=== PATIENT | male | born 1995 | race Asian ===

== ENCOUNTER 2016-08-14 15:42 | Emergency (ER) | payer OTHER ==
[~2016-08-14] VITALS: Ht 182.9 cm; Wt 109.3 kg
[2016-08-14 15:56] VITALS: TEMP 37; Ht 182.9 cm; Wt 109.3 kg
[2016-08-14] MEDS ORDERED: CLR10 PO (17:33)
[2016-08-14] MEDS ORDERED: OXYM-48 NAE (17:33)
[2016-08-14] MEDS ORDERED: BNC/20125 PO (17:33)
[2016-08-14] MEDS ORDERED: MILK1CAP9 PO (17:33)
[2016-08-14] MEDS ORDERED: LEVO75TA PO (17:33)
[2016-08-14] MEDS ORDERED: BIOT10CA PO (17:33)
[2016-08-14] MEDS ORDERED: SODIUM CHLORIDE 0.9% 1000ML 1,000 ML IV STA (17:37)
[2016-08-14 18:01] LABS: HEMATOCRIT 40.3 % (42-52); MEAN CELL VOLUME 82.8 fL (80-100); MEAN CORPUSCULAR HEMOGLOBIN 28.3 pg (25-34); MEAN CORPUSCULAR HGB CONC 34.2 g/dl (32-36); MEAN PLATELET VOLUME 9.3 fL (7.4-10.4); PLATELET COUNT 215 K/uL (130-400); RED BLOOD COUNT 4.87 M/uL (4.7-6.1); WHITE BLOOD COUNT 11.79 K/uL (4.8-10.8)
[2016-08-14 18:17] LABS: BUN/CREATININE RATIO 11.1 (10-20); CALCIUM 9.2 mg/dl (8.5-10.1); CREATININE 0.88 mg/dl (0.60-1.40); POTASSIUM 3.8 mmol/L (3.5-5.1)
[2016-08-14 18:20] LABS: ALB/GLOB RATIO 0.9 (0.9-2)
--- NOTE | 2016-08-14 18:51 | DIAGNOSTIC IMAGING REPORT ---
CHEST 2 VIEWS ROUTINE CLINICAL HISTORY: cough dyspnea COMPARISON STUDY: No previous studies for comparison. FINDINGS: The bones soft tissues and hemidiaphragms are normal. The cardiomediastinal silhouette is normal. The lungs are clear. The pulmonary vasculature is normal. IMPRESSION: Negative chest. Electronically signed by: Cale Hartman M.D. 08/14/2016 6:50 PM Dictated Date/Time: 08/14/2016 6:50 PM
[2016-08-14] MEDS ORDERED: SULFAMETHOXAZOLE/TRIMETHOPRIM DS 800/160MG TAB PO STA (19:04)
[2016-08-14 19:22] VITALS: BP 127/76; PULSE 86; O2SAT 98
[2016-08-14] MEDS ORDERED: SULF800T23 PO (19:23)
--- NOTE | 2016-08-14 19:25 | EMERGENCY ROOM VISIT NOTE ---
ED Visit Note First contact with patient: 17:19 CHIEF COMPLAINT: Headache, facial pain, sinus and nasal congestion 2 weeks HPI: Patient is a 21-year-old male who presents emergency department for evaluation of upper respiratory symptoms that have been ongoing for almost 2 weeks. He states that prior to leaving for spring at the beginning of the month, he was sick with upper respiratory symptoms for about a day and went to [facility]. He was told it was viral. He subsequently flew to [place] for spring. He felt okay but had some minor congestion while away. He states that after flying back from [place] and arriving here in town last Monday he symptoms markedly worsened. He describes a frontal headache and pressure in his sinuses and behind his eyes. He notes swollen glands in his neck, postnasal drip, and a scant, nonproductive cough. He was seen in [facility] about 4 days ago and placed on Claritin and a nasal steroid spray. He states that his symptoms have not improved. Today he notes dark urine, feeling a little fatigued and lightheaded. He has also noted some night sweats. He denies any ear pain or sore throat. He reports that his roommate was sick with similar symptoms around the same time, but is feeling better. He denies any posterior neck pain or stiffness. No rashes. No chest pain or shortness of breath. REVIEW OF SYSTEMS: Review of systems as per HPI. All other systems reviewed were negative. 10 systems reviewed. PMH: Electronic medical records are reviewed and summarized as above/below. See Problem List. SOCIAL HISTORY: College student from [employer] who lives locally with a roommate. He does not smoke. PHYSICAL EXAM: Vital Signs: Reviewed Nurse's notes. MENTAL STATUS: Alert and cooperative. Nontoxic appearing. HEAD: Atraumatic, without temporal or scalp tenderness. EYES: PERRL, EOMI, no discharge or injection. EARS: Tympanic membranes intact, not inflamed, have normal contour. External canals clear. NOSE: Nares patent, turbinates edematous and boggy with think rhinorrhea. MOUTH: Mucous membranes moist, no lesions, tongue and gums appear normal. THROAT: No pharyngeal injection, exudates, or tonsillar hypertrophy. Airway is patent. NECK: Supple, nontender, cervical chain lymphadenopathy noted. HEART: Regular rate and rhythm without murmurs, ectopy, gallops, or rubs. LUNGS: Clear to auscultation and breath sounds equal, no wheezes, rales, or rhonchi. SKIN: Normal. NEUROLOGICAL: Sensory and motor functions grossly intact. Normal gait. ED course: IV access was obtained. Patient was hydrated with normal saline solution. Urine dip was obtained and was unremarkable. CBC, CMP, total CK and Monospot were drawn. Chest x-ray was obtained and was unremarkable. Laboratory studies revealed a white count of 11,900, electrolytes within normal limits. Slight, nonspecific elevation of his AST, ALT and alkaline phosphatase. Total CK is not indicative of rhabdomyolysis. Monospot is positive. Patient was made aware of the results of his ED workup. His presentation appears more consistent with sinusitis given his URI prodrome of over 2 weeks. She does also have a positive Monospot. I did question him regarding his elevated liver functions and he states that this is actually something that he has been diagnosed with previously. He reports that he was told to take milk thistle for this. It is unclear whether the transaminitis is related to the mono or if this is chronic for the patient as there are no old labs available for comparison. Supportive care measures were discussed. He will be placed on Bactrim for his sinusitis. He will is encouraged to use his nasal steroid spray. He was advised to follow-up with [facility] to have his abdomen reexamined, and to have his LFTs rechecked. Differential diagnoses entertained included URI, sinusitis, bronchitis, pneumonia, mononucleosis, other viral illness including influenza, among others. CHEST 2 VIEWS ROUTINE CLINICAL HISTORY: cough dyspnea COMPARISON STUDY: No previous studies for comparison. FINDINGS: The bones soft tissues and hemidiaphragms are normal. The cardiomediastinal silhouette is normal. The lungs are clear. The pulmonary vasculature is normal. IMPRESSION: Negative chest. Problem List Medical Problems: (1) Hypertension Status: Chronic (2) Hypothyroidism Status: Chronic Surgical Problems: (1) History of knee surgery Status: Resolved Current/Historical Medications Scheduled Biotin (Cvs Biotin), 10 MG PO DAILY Levothyroxine Sodium (Synthroid), 75 MCG PO DAILY Loratadine (Claritin), 10 MG PO DAILY Milk Thistle (Silybum Marianum (Milk Thistle), 1,000 MG PO DAILY Olmesartan/Hctz (Benicar Hct 20/12.5), 1 TAB PO DAILY Sulfa/Trimethoprim (Bactrim Ds 800MG/160MG), 1 TAB PO BID Scheduled PRN Oxymetazoline HCl (Vicks Sinex), 1 SPRAYS JELLY DIRECTED PRN for CONGESTION Allergies Coded Allergies: No Known Allergies (Unverified , 08/14/16) Vital Signs Date Time Temp Pulse Resp B/P Pulse Ox O2 Delivery O2 Flow Rate FiO2 08/14/16 19:22 86 20 127/76 98 Room Air 08/14/16 17:58 81 16 116/84 99 Room Air 08/14/16 15:56 37.0 98 18 132/85 98 Room Air Laboratory Results 08/14/16 17:48 08/14/16 17:48 Test 08/14/16 17:48 Red Blood Count 4.87 M/uL (4.7-6.1) Mean Corpuscular Volume 82.8 fL (80-100) Mean Corpuscular Hemoglobin 28.3 pg (25-34) Mean Corpuscular Hemoglobin Concent 34.2 g/dl (32-36) RDW Standard Deviation 42.0 fL (36.4-46.3) RDW Coefficient of Variation 13.9 % (11.5-14.5) Mean Platelet Volume 9.3 fL (7.4-10.4) Anion Gap 10.0 mmol/L (3-11) Est Creatinine Clear Calc Drug Dose 171.0 ml/min Estimated GFR () 143.3 Estimated GFR (Non- 123.7 BUN/Creatinine Ratio 11.1 (10-20) Calcium Level 9.2 mg/dl (8.5-10.1) Total Bilirubin 0.4 mg/dl (0.2-1) Aspartate Amino Transf (AST/SGOT) 74 U/L (15-37) Alanine Aminotransferase (ALT/SGPT) 161 U/L (12-78) Alkaline Phosphatase 217 U/L (45-117) Total Creatine Kinase 60 U/L (39-308) Total Protein 7.8 gm/dl (6.4-8.2) Albumin 3.7 gm/dl (3.4-5.0) Globulin 4.1 gm/dl (2.5-4.0) Albumin/Globulin Ratio 0.9 (0.9-2) Monoscreen POS (NEG) Medications Administered Medications (Trade) Dose Ordered Sig/Shonda Route Start Time Stop Time Status Last Admin Dose Admin Sodium Chloride (Nss 1000ml) 1,000 ml @ 999 mls/hr Q1H1M STAT IV 08/14/16 17:37 08/14/16 18:37 DC 08/14/16 17:58 999 MLS/HR Trimethoprim/ Sulfamethoxazole (Septra Ds 800/ 160MG Tab) 1 tab NOW STAT PO 08/14/16 19:04 08/14/16 19:05 DC 08/14/16 19:20 1 TAB Departure Information Impression Primary Impression: Acute sinusitis Additional Impression: Mononucleosis Prescriptions Sulfa/Trimethoprim (Bactrim Ds 800MG/160MG) Tab 1 TAB PO BID, #20 TAB Prov: Meg Tipton PA 08/14/16 Referrals No Doctor, Assigned (PCP) Patient Instructions My [facility] Additional Instructions Trimethoprim-Sulfamethoxazole(Bactrim DS): Take one pill twice daily for 10 days for your sinus infection. All antibiotics can cause diarrhea. If this occurs and you feel worse or it does not resolve in 1-2 days follow up with your doctor or return to the Emergency Department as this could be signs of serious underlying problems. Any medication can cause an allergic reaction, stop the pills immediately and return to the ER for rash, hives, breathing difficulties, or swelling. Acetaminophen(Tylenol) may be used for fever or pain. Use 1000mg every six hours as needed. Avoid using more than 3000mg in a 24 hour period. (AND/OR) Ibuprofen(Motrin, Advil) may be used for fever or pain. Use 600mg every six hours as needed. Take with food. Avoid using more than 2400mg in a 24 hour period. Do not use 2400mg per day for more than three consecutive days without physician direction. Prolonged inappropriate use can lead to stomach upset or ulcers. Continue nasal steroid spray. Guaifenesin (Mucinex) : Take 1200 mg every 12 hours as needed for nasal/chest congestion, to help thin secretions. Robitussin or Delsym if needed for cough. Rest and drink plenty of fluids. Wash your hands after nose blowing, sneezing, or coughing. Most germs are spread through contact, therefore improper hygiene may result in your close contacts and loved ones becoming ill just like you. Continue current medications. Stop milk thistle. Return to the ER for severe headache, neck stiffness, chest pain, difficulty breathing, fevers, vomiting, abdominal pain, worsening of your condition, or as needed. Follow up with [facility] in 7-10 days for reexamination of your abdomen and recheck of your liver function studies. Problem Qualifiers
== END 2016-08-14 19:30 | disposition home or self-care (01) ==
LOC: C.EDB 15:46 → C.EDC 19:30
DX: J01.90 Acute sinusitis, unspecified (principal); B27.90 Infectious mononucleosis, unspecified without complication; I10 Essential (primary) hypertension; E03.9 Hypothyroidism, unspecified